=== PATIENT | female | born 1945 | race Caucasian/White ===

== ENCOUNTER 2018-05-29 06:50 | Observation (INO) | payer OTHER ==
[~2018-05-29] VITALS: Ht 160 cm; Wt 83.9 kg
[~2018-05-29 06:50] MED LIST: CARBIDOPA-LEVO1 EAC3 PO; GABAPENTIN100 MG PO; HYDROCODON-ACE1 EAC5 PO; LO-DOSE ASPIRIN81 M1 PO; MOBIC15 MG PO; MULTIVITAMIN PO; NORCO 5-325 TA1 EACH PO
[2018-05-29 06:54] VITALS: BP 177/86
[2018-05-29] MEDS ORDERED: BINOSTO70 MG PO (07:03)
[2018-05-29] MEDS ORDERED: LIPITOR 20 MG T20 M1 PO (07:04)
[2018-05-29] MEDS ORDERED: OMEPRAZOLE40 MG PO (07:04)
[2018-05-29] MEDS ORDERED: FISH OIL 1,001000 M2 PO (07:04)
[2018-05-29 08:01] LABS: APTT 25.5 Seconds (25.0-31.3); INR 1.1
[2018-05-29 08:02] LABS: ABSOLUTE EOSINOPHILS 0.1 thou/uL (0.0-0.7); ABSOLUTE LYMPHOCYTES 1.1 thou/uL (0.8-5.3); ABSOLUTE MONOCYTES 0.4 thou/uL (0.0-1.2); ABSOLUTE NEUTROPHILS 5.3 thou/uL (1.6-8.1); ANION GAP 10 mmol/L (7-16); BASOPHILS 0.4 %; BUN 16 mg/dL (7-18); CALCIUM 8.3 mg/dL (8.5-10.1); CHLORIDE 106 mmol/L (98-107); CO2 25 mmol/L (21-32); CREATININE 0.8 mg/dL (0.6-1.3); GLUCOSE 108 mg/dL (70-99); HEMATOCRIT 40.6 % (37.0-47.0); HEMOGLOBIN 13.6 gm/dL (12.0-15.0); LYMPHOCYTES 15.6 %; MCH 29.1 pg (26.0-34.0); MCHC 33.6 g/dL (28.0-37.0); MCV 86.6 fL (80.0-100.0); MONOCYTES 5.7 %; MPV 7.8 fl. (7.2-11.1); NUCLEATED RBCS 0 /100WBC; PLATELET COUNT* 238 thou/uL (150-400); POLYS 76.3 %; POTASSIUM 3.5 mmol/L (3.5-5.1); RBC 4.69 mil/uL (4.20-5.00); RDW-CV 12.8 % (10.5-14.5); SODIUM 141 mmol/L (136-145)
[2018-05-29 08:21] LABS: ALBUMIN 3.7 g/dL (3.4-5.0); ALKALINE PHOSPHATASE 59 U/L (46-116); CK-MB MASS 1.7 ng/mL (<0.5-3.6); LIPASE 122 U/L (73-393); MAGNESIUM 1.8 mg/dL (1.8-2.4); NT-PRO BRAIN NAT PEPTIDE 428 pg/mL (<300); SGOT 27 U/L (15-37); SGPT 37 U/L (30-65); TOTAL BILIRUBIN 0.8 mg/dL (<0.1-1.0); TOTAL PROTEIN 6.9 g/dL (6.4-8.2); TROPONIN-I LEVEL <0.06 ng/mL (<0.06)
[2018-05-29 11:30] VITALS: BP 144/77
[2018-05-29 11:31] VITALS: BP 151/85
--- NOTE | 2018-05-29 15:18 | 2DMMODE ---
[place] [address] 2 D/M-MODE ECHOCARDIOGRAM Name: RITA ULLOA Room: [address] IN [facility]#: [id number] Admission: 05/29/18 Attend Phys: Mariusz De La Garza Discharge: Date of : 45 Date of Service: 05/29/18 1518 Report #: [id number] THIS REPORT FOR: //name// APPROVED REPORT Study performed: 05/29/2018 13:47:12 EXAM: Comprehensive 2D, Doppler, and color-flow Echocardiogram Patient Location: In-Patient Room #: [facility] Status: routine BSA: 1.87 HR: 66 bpm BP: 151/85 mmHg Rhythm: NSR Other Information Study Quality: Good Indications Chest Pain 2D Dimensions IVSd: 13.08 (7-11mm) LVOT Diam: 20.61 (18-24mm) LVDd: 46.88 mm PWd: 10.95 (7-11mm) Ascending Ao: 32.54 (22-36mm) LVDs: 33.51 (25-40mm) Aortic Root: 28.28 mm Volumes Left Atrial Volume (Systole) LA ESV Index: 21.10 mL/m2 Aortic Valve AoV Peak Farrukh.: 1.59 m/s AO Peak Gr.: 10.10 mmHg LVOT Max P.13 mmHg AO Mean Gr.: 5.37 mmHg LVOT Mean P.61 mmHg LVOT Max V: 0.88 m/s AO V2 VTI: 34.03 cm LVOT Mean V: 0.59 m/s ZAK (VTI): 2.05 cm2 LVOT V1 VTI: 20.89 cm Mitral Valve E/A Ratio: 0.77 MV Decel. Time: 277.64 ms MV E Max Farrukh.: 0.69 m/[place] [address] 2 D/M-MODE ECHOCARDIOGRAM Name: RITA ULLOA Room: [address] IN [facility]#: [id number] Admission: 05/29/18 Attend Phys: Mariusz De La Garza Discharge: Date of : 45 Date of Service: 05/29/18 1518 Report #: [id number] MV PHT: 80.52 ms MVA (PHT): 2.73 cm2 TDI E/Lateral E': 7.67 E/Medial E': 9.86 Medial E' Farrukh.: 0.07 m/s Lateral E' Farrukh.: 0.09 m/s Pulmonary Valve PV Peak Farrukh.: 0.89 m/s PV Peak Gr.: 3.14 mmHg Left Ventricle The left ventricle is normal size. There is normal LV segmental wall motion. There is normal left ventricular wall thickness. Left ventricular systolic function is normal. LVEF is 55-60%. Transmitral Doppler flow pattern suggests impaired LV relaxation. Right Ventricle The right ventricle is normal size. The right ventricular systolic function is normal. Atria The left atrium size is normal. The right atrium size is normal. Aortic Valve The aortic valve is normal in structure. No aortic regurgitation is present. There is no aortic valvular stenosis. Mitral Valve The mitral valve is normal in structure. Trace mitral regurgitation. No evidence of mitral valve stenosis. Tricuspid Valve The tricuspid valve is normal in structure. Unable to assess PA pressure. Trace tricuspid regurgitation. Pulmonic Valve The pulmonary valve is normal in structure. There is no pulmonic valvular regurgitation. Great Vessels The aortic root is normal in size. IVC is normal in size and collapses with >50% [place] [address] 2 D/M-MODE ECHOCARDIOGRAM Name: RITA ULLOA Room: [address]#: [id number] Admission: 05/29/18 Attend Phys: Mariusz De La Garza Discharge: Date of : 45 Date of Service: 05/29/18 1518 Report #: [id number] There is no pericardial effusion. <Conclusion> The left ventricle is normal size. There is normal left ventricular wall thickness. Left ventricular systolic function is normal. LVEF is 55-60%. Transmitral Doppler flow pattern suggests impaired LV relaxation. <ELECTRONICALLY SIGNED> By: Dyllan Mcconnell MD, FACC 05/29/18 1518 17 1518 Dyllan Mcconnell MD, FACC /INF
--- NOTE | 2018-05-29 15:45 | EKG ---
[place] [address] ELECTROCARDIOGRAM REPORT Name: RITA ULLOA Room: [address] ADM IN [facility].#: [id number] Admission: 05/29/18 Attend Phys: Stephanie Kulkarni Discharge: Date of : 45 Report #: [id number] THIS REPORT FOR: //name// [facility] ED Test Date: 2018-05-29 Test Time: 06:57:27 Pat Name: RITA ULLOA Department: Room: [facility] Gender: F Business Mgr: Benji MATHEWS : 1945 Requested By: Cy Huizar Order Number: [id number] MD: Dyllan Mcconnell Measurements Intervals [place] Rate: 119 P: 51 MT: 47 QRS: -10 QRSD: 106 T: 6 QT: 356 QTc: 501 Interpretive Statements Sinus tachycardia Ventricular tachycardia, unsustained Short MT interval No previous ECG available for comparison Electronically Signed On 05-29-2018 15:45:19 CDT by Dyllan Mcconnell [email or web address] <ELECTRONICALLY SIGNED> By: Dyllan Mcconnell MD, [facility] 05/29/18 [id number] Dyllan Mcconnell MD, [facility] /EPI
--- NOTE | 2018-05-29 15:48 | EKG ---
[place] [address] ELECTROCARDIOGRAM REPORT Name: RITA ULLOA Room: [address] ADM [place] .R.#: [id number] Admission: 05/29/18 Attend Phys: Stephanie Kulkarni Discharge: Date of : 45 Report #: [id number] THIS REPORT FOR: //name// [facility] Test Date: 2018-05-29 Test Time: 13:06:41 Pat Name: RITA ULLOA Department: Room: [address] Gender: F Scheduling Administrator: Benji : 1945 Requested By: Cy Huizar Order Number: [id number] Latia MD: Dyllan Mcconnell Measurements Intervals [place] Rate: 76 P: 31 CA: 134 QRS: -3 QRSD: 103 T: 8 QT: 438 QTc: 493 Interpretive Statements Sinus rhythm Premature ventricular contractions noted Probable left atrial enlargement Minimal ST depression, lateral leads Borderline prolonged QT interval No previous ECG available for comparison Electronically Signed On 05-29-2018 15:48:13 CDT by Dyllan Mcconnell [email or web address] <ELECTRONICALLY SIGNED> By: Dyllan Mcconnell MD, [facility] 05/29/18 [id number] Dyllan Mcconnell MD, [facility] /EPI
--- NOTE | 2018-05-29 18:43 | CARDNUC ---
[place] [address] CARDIAC NUCLEAR IMAGING REPORT Name: RITA ULLOA Room: [address] IN [facility]#: [id number] Admission: 05/29/18 Attend Phys: Mariusz De La Garza Discharge: Date of : 45 Date of Service: 05/29/18 1843 Report #: [id number] THIS REPORT FOR: //name// APPROVED REPORT Study performed: 05/29/2018 12:25:00 Indication: Chest pain Patient Location: In-Patient Room #: 231 Stress Tech: Felipa Ewing Stress Nurse: Monalisa Thorpe RN Ht: 5 ft 3 in Wt: 183 lbs BSA: 1.86 m2 BMI: 32.41 Medical History Medical History: hyperlipidemia Medications: atorvastatin Allergies: codeine Cardiac Risk Factors: age, hyperlipidemia, family hx Previous Cardiac Procedures: none Exercise History: Sedentary Resting Data Rest SPECT myocardial perfusion imaging was performed in supine position 30 minutes following the intravenous injection of 10.0 mCi of Tc-99m Sestamibi. Time of rest injection: 13:55 The images were gated to evaluate regional wall motion and calculate left ventricular ejection fraction. Administration Route: IV Administration Site: Right AC Pharmacologic Stress Pharmacologic stress test was performed by injecting Regadenoson 0.4 mg IV push over 10-15 seconds immediately followed by the intravenous injection of 33.1 mCi of Tc-99m Sestamibi. Time of stress injection: 15:25 Administration Route: IV Administration Site: Right AC Heart Rate at time of stress injection: 94 bpm. Gated Stress SPECT was performed 40 minutes after stress injection. The images were gated to evaluate regional [place] [address] CARDIAC NUCLEAR IMAGING REPORT Name: RITA ULLOA Room: [address]#: [id number] Admission: 05/29/18 Attend Phys: Mariusz De La Garza Discharge: Date of : 45 Date of Service: 05/29/18 1843 Report #: [id number] left ventricular ejection fraction. Prone imaging was performed. Stress Test Details Stress Test: Pharmacologic stress testing performed using 0.4 mg of regadenoson per 5 mL given IV over 10 seconds. Reason for pharmacologic stress test: physical limitation. 60 mg caffeine given for dizziness. HR Max Heart Rate (APMHR): 148 bpm Resting HR: 68 bpm Target HR (85% APMHR): 125 bpm Max HR Achieved: 94 bpm % of APMHR: 63 Recovery HR: 68 bpm BP Resting BP: 131/82 mmHg Recovery BP: 129/93 mmHg ECG Resting ECG: sinus rhythm with unifocal premature ventricular contractions Stress ECG: sinus rhythm with unifocal premature ventricular contractions ST Change: None Arrhythmia: VPC's Recovery ECG: sinus rhythm with unifocal premature ventricular contractions Recovery ST Change: None Recovery Arrhythmia: VPC Clinical Reason for Termination: Completed protocol Exercise duration: 0 min sec Exercise capacity: 1 METs The patient has no chest discomfort with Lexiscan infusion. The patient had some bradycardia arrhythmia due to medication affect. Nurse Comments pt became diaphoretic, pale nasuseated. near sycopal. no change in ekg although heart rate began to drop down into 40'2. pt placed suping and caffeine given. Pt quickly resolved all symptoms Stress ECG Conclusion The baseline 12-lead EKG shows sinus rhythm with no significant ST or T wave abnormalities. There [place] [address] CARDIAC NUCLEAR IMAGING REPORT Name: RITA ULLOA Room: [address]#: [id number] Admission: 05/29/18 Attend Phys: Mariusz De La Garza Discharge: Date of : 45 Date of Service: 05/29/18 1843 Report #: [id number] ventricular contractions noted. Post Lexiscan infusion the patient had transient bradycardia but no significant ST or T wave changes when compared baseline. Premature ventricular contractions persisted throughout the stress phase. Study Quality Study: Good Artifact: No artifact Study Data At rest, the left ventricular ejection fraction was 54%.. Post stress, the left ventricular ejection was 62%.. TID = 0.91. Perfusion Normal left ventricular perfusion. Wall Motion Normal left ventricular wall motion. Nuclear Conclusion ECG Findings: negative for ischemia Clinical Findings: negative for ischemia Nuclear Findings: negative for ischemia Exercise Capacity: not assessed Left Ventricular Function: normal Risk Study: low Myocardial perfusion images show no defect to suggest infarct or ischemia. Left ventricular systolic function appears normal on gated studies. This is a low risk study. <Conclusion> The baseline 12-lead EKG shows sinus rhythm with no significant ST or T wave abnormalities. There are occasional unifocal premature ventricular contractions noted. Post Lexiscan infusion the patient had transient bradycardia but no significant ST or T wave changes when compared baseline. Premature ventricular contractions persisted throughout the stress phase. <ELECTRONICALLY SIGNED> By: Dyllan Mcconnell MD, FACC 05/29/181842 42 42 Dyllan Mcconnell MD, FACC /INF
[2018-05-29 20:00] VITALS: BP 127/64
[2018-05-30] VITALS: BP 122/69
[2018-05-30 04:00] VITALS: BP 139/51
[2018-05-30 08:00] VITALS: BP 152/89
--- NOTE | 2018-05-30 10:58 | EKG ---
[place] [address] ELECTROCARDIOGRAM REPORT Name: RITA ULLOA Room: [address] ADM [place] .R.#: [id number] Admission: 05/29/18 Attend Phys: Stephanie Kulkarni Discharge: Date of : 45 Report #: [id number] THIS REPORT FOR: //name// [facility] Test Date: 2018-05-29 Test Time: 19:29:14 Pat Name: RITA ULLOA Department: Room: [address] Gender: F Varsity Baseball Coach: JOSMAR : 1945 Requested By: Cy Huizar Order Number: [id number] MD: Rodney Mejia Measurements Intervals [place] Rate: 84 P: 61 IN: 137 QRS: 20 QRSD: 95 T: 13 QT: 399 QTc: 472 Interpretive Statements Sinus rhythm Ventricular trigeminy Low voltage, precordial leads Minimal ST depression, lateral leads Compared to ECG 05/29/2018 13:06:41 no change Electronically Signed On 05-30-2018 10:57:55 CDT by Rodney Mejia [email or web address] <ELECTRONICALLY SIGNED> By: Rodney Mejia MD, [facility] 05/30/18 1057 28 Rodney Mejia MD, [facility] /EPI
[2018-05-30 11:55] VITALS: BP 126/90
[2018-05-30] MEDS ORDERED: IBUPROFEN 200200 M1 PO (11:56)
[2018-05-30] MEDS ORDERED: KAPSPARGO SPRIN25 MG PO (12:14)
[2018-05-30] MEDS ORDERED: NORCO 5-325 TA1 EACH PO (13:14)
[2018-05-30 13:18] VITALS: BP 126/90
== END 2018-05-30 13:54 | disposition home or self-care (01) ==
LOC: M.ERS 06:50 → M.TBA-ER 09:00 → M.2W 09:00
PROVIDERS: Family Medicine; ADMIT Internal Medicine
DX: R07.89 Other chest pain (principal); M25.532 Pain in left wrist; R53.83 Other fatigue; R03.0 Elevated blood-pressure reading, without diagnosis of hypertension; E78.5 Hyperlipidemia, unspecified; Z98.890 Other specified postprocedural states